=== PATIENT | female | born 1965 | race Hispanic/Latino ===

== ENCOUNTER 2022-01-17 14:55 | Emergency (ER) | payer SELFPAY ==
[~2022-01-17] VITALS: Ht 167.6 cm; Wt 88.5 kg
[2022-01-17 15:02] VITALS: BP 145/91
[2022-01-17] MEDS ORDERED: IBUPROFEN 600 MG TABLET PO ONE (15:30)
[2022-01-17] MEDS ORDERED: IBUPROFEN 600 MG TABLET ONE (15:32)
[2022-01-17] MEDS ORDERED: IBUP-2070 PO (15:43)
== END 2022-01-17 15:59 | disposition home or self-care (01) ==
LOC: EDH 14:55
DX: M25.511 Pain in right shoulder (principal); M54.2 Cervicalgia; Z79.1 Long term (current) use of non-steroidal anti-inflammatories (NSAID); V49.49XA Driver injured in collision with other motor vehicles in traffic accident, initial encounter; Y93.89 Activity, other specified; Y92.89 Other specified places as the place of occurrence of the external cause; Y99.8 Other external cause status